=== PATIENT | female | born 2000 | race Caucasian/White ===

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

== ENCOUNTER 2022-03-04 03:34 | Outpatient (CLI) | payer BC, SELFPAY ==
[2022-03-04 12:39] LABS: Abs Immature Grans 0.02 10^3/uL (0.0-0.06); Absolute Basophil Count 0.05 10^3/uL (0.0-0.2); Absolute Eosinophil Count 0.17 10^3/uL (0.0-0.7); Absolute Monocyte Count 0.55 10^3/uL (0.1-0.8); Basophils % 0.6; HCT 39.8 % (36.0-46.0); HGB 12.9 g/dL (11.2-15.7); Immature Grans % 0.2; Lymphocytes % 23.6; MCH 28.7 pg (27.0-33.0); MCHC 32.4 % (32.0-36.0); MCV 88 fL (80-95); MPV 11.6 fL (8.0-11.0); Monocytes % 6.5; Neutrophils % 67.1; Platelet Count 262 10^3/uL (130-400); RDW 13.8 % (11.7-14.6); RDW-SD 44.3 fL; WBC 8.49 10^3/uL (4.4-10.8)
[2022-03-04 12:59] LABS: Iron 179 ug/dL (50-170); Total Iron Binding Capacity 394 ug/dL (250-450); Transferrin Sat 45 % (15-50)
[2022-03-04 13:11] LABS: Ferritin 33 ng/mL (8-252)
== END 2022-03-04 03:35 | disposition home or self-care (01) ==
LOC: LOS 03:34
PROVIDERS: Visit Provider Family Medicine
DX: E61.1 Iron deficiency (principal)
CPT/HCPCS: 36415; 82728; 83540; 83550; 85025

== ENCOUNTER 2022-08-06 03:20 | Outpatient (CLI) | payer BC, SELFPAY ==
[2022-08-06 12:14] LABS: Abs Immature Grans 0.01 10^3/uL (0.0-0.06); Absolute Basophil Count 0.04 10^3/uL (0.0-0.2); Absolute Eosinophil Count 0.35 10^3/uL (0.0-0.7); Absolute Lymphocyte Count 1.27 10^3/uL (1.2-3.4); Absolute Monocyte Count 0.43 10^3/uL (0.1-0.8); Basophils % 0.9; Eosinophils % 7.4; HCT 38.4 % (36.0-46.0); HGB 12.4 g/dL (11.2-15.7); Immature Grans % 0.2; MCH 26.9 pg (27.0-33.0); MCHC 32.3 % (32.0-36.0); MCV 83 fL (80-95); MPV 11.4 fL (8.0-11.0); Monocytes % 9.1; Neutrophils % 55.4; Platelet Count 242 10^3/uL (130-400); RBC 4.61 10^6/uL (3.93-5.22); RDW 13.9 % (11.7-14.6); RDW-SD 41.3 fL
[2022-08-06 13:29] LABS: ALT 15 U/L (14-59); AST 19 U/L (15-37); Albumin 3.7 g/dL (3.4-5.0); Alkaline Phosphatase 130 U/L (46-116); Anion Gap 8.3 mmol/L (3-11); BUN 9 mg/dL (7-18); Bilirubin, Total 1.3 mg/dL (0.2-1.0); CO2 26.7 mmol/L (21.0-32.0); CREATININE 0.9 mg/dL (0.55-1.02); Calcium 9.3 mg/dL (8.5-10.1); Chloride 106 mmol/L (98-107); Estimated GFR 94.44 (mL/min/1.73m2); Ferritin 21 ng/mL (8-252); Glucose 106 mg/dL (74-106); Potassium 3.6 mmol/L (3.5-5.1); Sodium 141 mmol/L (136-145)
[2022-08-06 13:33] LABS: Iron 32 ug/dL (50-170); Total Iron Binding Capacity 402 ug/dL (250-450)
== END 2022-08-06 03:21 | disposition home or self-care (01) ==
PROVIDERS: PCP Nurse Practitioner Family; Visit Provider Nurse Practitioner Family
DX: G47.00 Insomnia, unspecified (principal); E61.1 Iron deficiency
CPT/HCPCS: 36415; 80053; 82728; 83540; 83550; 85025

== ENCOUNTER 2022-12-18 03:05 | Outpatient (CLI) | payer BC, SELFPAY ==
[2022-12-18 14:09] LABS: HCT 38.6 % (36.0-46.0); HGB 12.2 g/dL (11.2-15.7); MCH 27.2 pg (27.0-33.0); MCHC 31.6 % (32.0-36.0); MCV 86 fL (80-95); MPV 11.9 fL (8.0-11.0); Platelet Count 269 10^3/uL (130-400); RBC 4.48 10^6/uL (3.93-5.22); RDW 13.2 % (11.7-14.6); RDW-SD 40.8 fL; WBC 7.37 10^3/uL (4.4-10.8)
[2022-12-18 14:43] LABS: ALT 17 U/L (14-59); AST 15 U/L (15-37); Albumin 3.8 g/dL (3.4-5.0); Alkaline Phosphatase 122 U/L (46-116); BUN 18 mg/dL (7-18); CREATININE 0.9 mg/dL (0.55-1.02); Calcium 9.3 mg/dL (8.5-10.1); Chloride 106 mmol/L (98-107); Estimated GFR 93.86 (mL/min/1.73m2); Glucose 93 mg/dL (74-106); Potassium 4.2 mmol/L (3.5-5.1); Sodium 139 mmol/L (136-145)
[2022-12-18 15:14] LABS: Iron 22 ug/dL (50-170)
== END 2022-12-18 03:06 | disposition home or self-care (01) ==
PROVIDERS: PCP Nurse Practitioner Family; Visit Provider Nurse Practitioner Family
DX: E61.1 Iron deficiency (principal); R74.8 Abnormal levels of other serum enzymes
CPT/HCPCS: 36415; 80053; 85027; 83540

== ENCOUNTER 2023-05-15 11:07 | Outpatient (CLI) | payer BC, SELFPAY ==
[2023-05-15 12:17] LABS: HCT 41.2 % (36.0-46.0); HGB 13.7 g/dL (11.2-15.7); MCH 29.5 pg (27.0-33.0); MCHC 33.3 % (32.0-36.0); MCV 89 fL (80-95); MPV 11.6 fL (8.0-11.0); Platelet Count 255 10^3/uL (130-400); RBC 4.64 10^6/uL (3.93-5.22); RDW 13.4 % (11.7-14.6); RDW-SD 43.8 fL; WBC 7.79 10^3/uL (4.4-10.8)
[2023-05-15 12:42] LABS: ALT 20 U/L (14-59); AST 14 U/L (15-37); Albumin 3.5 g/dL (3.4-5.0); Alkaline Phosphatase 108 U/L (46-116); Anion Gap 7.8 mmol/L (3-11); BUN 10 mg/dL (7-18); C-Reactive Protein 0.06 mg/dL (0.0-0.3); CO2 23.2 mmol/L (21.0-32.0); CREATININE 0.8 mg/dL (0.55-1.02); Calcium 9.4 mg/dL (8.5-10.1); Chloride 106 mmol/L (98-107); Estimated GFR 108.11 (mL/min/1.73m2); Glucose 86 mg/dL (74-106); Potassium 4.1 mmol/L (3.5-5.1); Sodium 137 mmol/L (136-145); Total Protein 8.1 g/dL (6.4-8.2)
[2023-05-15 12:55] LABS: Iron 103 ug/dL (50-170); Total Iron Binding Capacity 398 ug/dL (250-450)
[2023-05-15 13:08] LABS: Ferritin 26 ng/mL (8-252)
[2023-05-15 16:46] LABS: ESR (LRH) 29 mm/hr
[2023-05-18 10:53] LABS: Lyme Ab w Rflx to Lyme Confirm Negative (Negative)
[2023-05-18 13:59] LABS: Anaplasma phagocytophilum Negative (Negative); B. miyamotoi PCR Negative (Negative); Babesia divergens/MO-1 Negative (Negative); Babesia duncani Negative (Negative); Babesia microti Negative (Negative); Ehrlichia chaffeensis Negative (Negative); Ehrlichia ewingii/canis Negative (Negative); Ehrlichia muris eauclairensis Negative (Negative)
[2023-05-18 14:57] LABS: ANA Interpretation Negative (Negative)
== END 2023-05-15 11:08 | disposition home or self-care (01) ==
PROVIDERS: PCP Nurse Practitioner Family; Referring Provider Nurse Practitioner Family; Visit Provider Nurse Practitioner Family
DX: M79.18 Myalgia, other site (principal); E61.1 Iron deficiency
CPT/HCPCS: 36415; 80053; 85027; 85652; 87798; 82728; 83540; 83550; 86038; 86140; 86618

== ENCOUNTER 2023-06-23 15:08 | Outpatient (REF) | payer BC, SELFPAY | END 2023-06-23 15:09 | disposition home or self-care (01) | LOC: LBN 15:08 | PROVIDERS: PCP Nurse Practitioner Family; Visit Provider Obstetrics & Gynecology | DX: Z11.3 Encounter for screening for infections with a predominantly sexual mode of transmission (principal) | CPT/HCPCS: 87480; 87510; 87660 ==

== ENCOUNTER 2023-09-02 11:37 | Outpatient (CLI) | payer BC, SELFPAY ==
[2023-09-02 12:20] LABS: Ferritin 38 ng/mL (8-252)
== END 2023-09-02 11:38 | disposition home or self-care (01) ==
LOC: LBO 11:37
PROVIDERS: PCP Nurse Practitioner Family; Visit Provider Nurse Practitioner
DX: G25.81 Restless legs syndrome (principal); M25.561 Pain in right knee
CPT/HCPCS: 36415; 82728

== ENCOUNTER 2023-09-18 10:02 | Outpatient (CLI) | payer BC, SELFPAY ==
--- NOTE | 2023-09-18 10:00 | RT.EKG_ITS ---
APPROVED REPORT Exam: Resting ECG Reason for Exam: ?POTS Patient Location: O HR:66 bpm ECG Measurements Heart Rate 66 AXIS HI 116 P 66 QRSd 87 QRS 67 QT 398 T 62 QTc 417 Conclusion Sinus rhythm...normal P axis, V-rate 50- 99 Borderline short HI interval...HI int <120mS Otherwise normal ECG
== END 2023-09-18 10:03 | disposition home or self-care (01) ==
PROVIDERS: PCP Nurse Practitioner Family; Visit Provider Nurse Practitioner Family
DX: R00.0 Tachycardia, unspecified (principal)
CPT/HCPCS: 93010

== ENCOUNTER 2023-10-08 13:53 | Outpatient (RCR) | payer BC, MEDICAID, SELFPAY ==
--- NOTE | 2023-10-08 14:00 | HOLTER_ITS ---
APPROVED REPORT Conclusion This is a 48hour Holter monitor Rhythm throughout was sinus with an average heart rate of 67. Minimum was 47, maximum 117 There were no ventricular or supraventricular dysrhythmias Symptoms were reported which corresponded to sinus rhythm
== END 2023-10-25 23:59 | disposition home or self-care (01) ==
LOC: CARDOPNVT 13:53
PROVIDERS: PCP Nurse Practitioner Family; Visit Provider Internal Medicine Cardiovascular Disease
DX: R00.0 Tachycardia, unspecified (principal)
CPT/HCPCS: 93225

== ENCOUNTER 2023-10-22 05:07 | Outpatient (CLI) | payer BC, MEDICAID, SELFPAY ==
[2023-10-22 15:53] LABS: Ferritin 31 ng/mL (8-252)
== END 2023-10-22 05:08 | disposition home or self-care (01) ==
LOC: LBO 05:07
PROVIDERS: PCP Nurse Practitioner Family; Visit Provider Nurse Practitioner Family
DX: E61.1 Iron deficiency (principal)
CPT/HCPCS: 36415; 82728

== ENCOUNTER 2024-08-05 13:13 | Outpatient (REF) | payer MEDICAID, SELFPAY ==
--- NOTE | 2024-08-05 13:00 | PAPFT_PTH ---
PATIENT: Sarah Mitchell LOC: [facility] U#:[id number] AGE/SX: 23/F ROOM: RE08/05/[address]: Martin Roberts DNP : 2000 BED: DIS: 08/05/2024 SPEC #: [id number] RECD: 08/08/24 13:25 STATUS: DANNY RESerjio #: [id number] JACLYN: 08/05/24 13:[address]: Martin Monge DEPT: [facility] Cytology RECD BY: Snehal Hansen Tissues: 1 - CX/ENDOCX FOR PAP SMEARS Procedures: PAP THIN PREP/UVM Screening HPV DNA PROBE Comments: [id number] (HPV 16 & 18/45) (CHLAMYDIA/GC)
[2024-08-09 13:33] LABS: Chlamydia Result Negative (Negative); GC Result Negative (Negative)
== END 2024-08-05 13:14 | disposition home or self-care (01) ==
LOC: LBN 13:13
PROVIDERS: PCP Nurse Practitioner Family; Visit Provider Nurse Practitioner Family
DX: N94.2 Vaginismus (principal)
CPT/HCPCS: 87491; 87591; 88142; 87624